=== PATIENT | male | born 1985 | race Caucasian/White ===

== ENCOUNTER → 2018-02-04 | Outpatient (CLI) | payer OTHER | END | disposition home or self-care (01) | LOC: RADMRIMAIN 15:26 | PROVIDERS: ATTEND Orthopaedic Surgery Sports Medicine | DX: Z53.9 Procedure and treatment not carried out, unspecified reason (principal) ==

== ENCOUNTER → 2018-04-14 | Outpatient (CLI) | payer BC ==
--- NOTE | 2018-04-15 07:15 | US ---
EXAMINATION TYPE: US kidneys/renal and bladder DATE OF EXAM: 04/14/2018 COMPARISON: NONE CLINICAL HISTORY: R10.11 RUQ PAIN. Rt flank pain x 8 days, Lt flank pain x 2 days, h/o renal stones EXAM MEASUREMENTS: Right Kidney: 13.4 x 5.0 x 5.2 cm Left Kidney: 12.2 x 5.7 x 6.0 cm *large body habitus and overlying bowel gas limits exam Right Kidney: No hydronephrosis or masses seen Left Kidney: No hydronephrosis or masses seen Bladder: wnl Bilateral Jets seen: rt only There is no evidence for hydronephrosis at this point in time. No nephrolithiasis is seen. No ning s are identified. The urinary bladder is anechoic. Bilateral ureteral jets are seen. IMPRESSION: No hydronephrosis or nephrolithiasis. Exam is slightly suboptimal given patient body habitus.
== END ==
LOC: RADUSWWP 16:15
PROVIDERS: ATTEND Family Medicine
DX: R10.11 Right upper quadrant pain (principal)
CPT/HCPCS: 76770

== ENCOUNTER 2019-10-11 10:38 | Observation (INO) | payer BC ==
[2019-10-11] MEDS ORDERED: NITROGLYCERIN OINT 1 INCH/GM PACKET TOPICAL STA (10:51)
[2019-10-11] MEDS ORDERED: ASPIRIN 81 MG PO STA (10:51)
--- NOTE | 2019-10-11 10:53 | ED ---
General Adult HPI - General Chief complaint: Chest Pain Stated complaint: chest pain Time Seen by Provider: 10/11/19 10:47 Source: patient, RN notes reviewed Mode of arrival: ambulatory Limitations: no limitations - History of Present Illness Initial comments: Patient is a pleasant 34-year-old male presenting to the emergency Department with complaints of chest discomfort. Onset of symptoms was a couple of hours ago. Patient had tightness in his chest however feels a little more sharp now. Discomfort does increase with deep breaths. No radiation. Patient feels slight dyspnea. Patient did have an episode of emesis last 2 mornings however he does occasionally do that normally. No diaphoresis. No history of similar problems previously. Patient is hypertensive. Patient also has hypercholesterolemia. - Related Data Allergies Allergy/AdvReac Type Severity Reaction Status Date / Time No Known Allergies Allergy Verified 10/11/19 10:43 Review of Systems ROS Statement: Those systems with pertinent positive or pertinent negative responses have been documented in the HPI. ROS Other: All systems not noted in ROS Statement are negative. Constitutional: Denies: fever Eyes: Denies: eye pain ENT: Denies: ear pain Respiratory: Reports: dyspnea. Denies: cough Cardiovascular: Reports: chest pain Endocrine: Denies: fatigue Gastrointestinal: Denies: abdominal pain Genitourinary: Denies: dysuria Musculoskeletal: Denies: back pain Skin: Denies: rash Neurological: Denies: weakness Past Medical History Past Medical History: Hypertension History of Any Multi-Drug Resistant Organisms: None Reported Past Surgical History: Hernia Repair Past Psychological History: No Psychological Hx Reported Smoking Status: Never smoker Past Alcohol Use History: Occasional Past Drug Use History: None Reported General Exam Limitations: no limitations General appearance: alert, in no apparent distress Head exam: Present: normocephalic Eye exam: Present: normal appearance Neck exam: Present: normal inspection Respiratory exam: Present: normal lung sounds bilaterally. Absent: chest wall tenderness Cardiovascular Exam: Present: regular rate, normal rhythm Expanded Peripheral pulses: 2+: Radial (R), Radial (L), Posterior Tibialis (R), Posterior Tibialis (L), Dorsalis Pedis (R), Dorsalis Pedis (L) GI/Abdominal exam: Present: soft. Absent: tenderness Extremities exam: Present: normal inspection. Absent: pedal edema, calf tenderness Neurological exam: Present: alert Psychiatric exam: Present: normal affect, normal mood Skin exam: Present: normal color Course Vital Signs 10/11/19 10:40 Temperature 98 F Pulse Rate 87 Respiratory 18 Rate Blood Pressure 134/91 O2 Sat by Pulse 99 Oximetry EKG Findings - EKG Comments: EKG Findings:: Sinus rhythm 85. CA 150. QRS 96. QT 358. QTC 426. Normal axis. Incomplete right bundle-branch block. No acute ST change. Medical Decision Making - Medical Decision Making Patient reevaluated and improved however still has some discomfort. Patient updated on results and plan. Dr. Blackmon has been paged for admission covering for Dr. Meier - Lab Data Result diagrams: 10/11/19 11:44 10/11/19 11:20 Lab Results 10/11/19 10/11/19 10/11/19 Range/Units 11:20 11:37 11:44 WBC 9.9 (3.8-10.6) k/uL RBC 5.03 (4.30-5.90) m/uL Hgb 13.9 (13.0-17.5) gm/dL Hct 43.8 (39.0-53.0) % MCV 87.1 (80.0-100.0) fL MCH 27.6 (25.0-35.0) pg MCHC 31.7 (31.0-37.0) g/dL RDW 12.9 (11.5-15.5) % Plt Count 257 (150-450) k/uL Neutrophils % 77 % Lymphocytes % 16 % Monocytes % 4 % Eosinophils % 1 % Basophils % 0 % Neutrophils # 7.7 (1.3-7.7) k/uL Lymphocytes # 1.6 (1.0-4.8) k/uL Monocytes # 0.4 (0-1.0) k/uL Eosinophils # 0.1 (0-0.7) k/uL Basophils # 0.0 (0-0.2) k/uL PT 9.9 (9.0-12.0) sec INR 0.9 (<1.2) APTT 22.6 (22.0-30.0) sec D-Dimer 0.34 (<0.60) mg/L FEU Sodium 139 (137-145) mmol/L Potassium 4.6 (3.5-5.1) mmol/L Chloride 103 (98-107) mmol/L Carbon Dioxide 29 (22-30) mmol/L Anion Gap 7 mmol/L BUN 14 (9-20) mg/dL Creatinine 0.70 (0.66-1.25) mg/dL Est GFR (CKD-EPI)AfAm >90 (>60 ml/min/1.73 sqM) Est GFR (CKD-EPI)NonAf >90 (>60 ml/min/1.73 sqM) Glucose 108 H (74-99) mg/dL Calcium 8.9 (8.4-10.2) mg/dL Magnesium 1.9 (1.6-2.3) mg/dL Total Bilirubin 0.5 (0.2-1.3) mg/dL AST 26 (17-59) U/L ALT 27 (4-49) U/L Alkaline Phosphatase 87 (38-126) U/L Troponin I (0.000-0.034) ng/mL Total Protein 7.9 (6.3-8.2) g/dL Albumin 4.5 (3.5-5.0) g/dL 10/11/19 Range/Units 11:45 WBC (3.8-10.6) k/uL RBC (4.30-5.90) m/uL Hgb (13.0-17.5) gm/dL Hct (39.0-53.0) % MCV (80.0-100.0) fL MCH (25.0-35.0) pg MCHC (31.0-37.0) g/dL RDW (11.5-15.5) % Plt Count (150-450) k/uL Neutrophils % % Lymphocytes % % Monocytes % % Eosinophils % % Basophils % % Neutrophils # (1.3-7.7) k/uL Lymphocytes # (1.0-4.8) k/uL Monocytes # (0-1.0) k/uL Eosinophils # (0-0.7) k/uL Basophils # (0-0.2) k/uL PT (9.0-12.0) sec INR (<1.2) APTT (22.0-30.0) sec D-Dimer (<0.60) mg/L FEU Sodium (137-145) mmol/L Potassium (3.5-5.1) mmol/L Chloride (98-107) mmol/L Carbon Dioxide (22-30) mmol/L Anion Gap mmol/L BUN (9-20) mg/dL Creatinine (0.66-1.25) mg/dL Est GFR (CKD-EPI)AfAm (>60 ml/min/1.73 sqM) Est GFR (CKD-EPI)NonAf (>60 ml/min/1.73 sqM) Glucose (74-99) mg/dL Calcium (8.4-10.2) mg/dL Magnesium (1.6-2.3) mg/dL Total Bilirubin (0.2-1.3) mg/dL AST (17-59) U/L ALT (4-49) U/L Alkaline Phosphatase (38-126) U/L Troponin I <0.012 (0.000-0.034) ng/mL Total Protein (6.3-8.2) g/dL Albumin (3.5-5.0) g/dL - Radiology Data Radiology results: image reviewed (Chest x-ray reviewed by myself reveals no acute process) Disposition Clinical Impression: Chest pain Disposition: ADMITTED IP TO THIS [facility] Is patient prescribed a controlled substance at d/c from ED?: No Referrals: Donte Meier MD [Primary Care Provider] - 1-2 days Decision Time: 14:25
[2019-10-11 11:39] LABS: ALT 27 U/L (4-49); AST 26 U/L (17-59); African American GFR (CKD) >90 (>60 ml/min/1.73 sqM); Albumin 4.5 g/dL (3.5-5.0); Alkaline Phosphatase 87 U/L (38-126); Anion Gap 7 mmol/L; Blood Urea Nitrogen 14 mg/dL (9-20); Calcium 8.9 mg/dL (8.4-10.2); Carbon Dioxide 29 mmol/L (22-30); Chloride 103 mmol/L (98-107); Glucose 108 mg/dL (74-99); Magnesium 1.9 mg/dL (1.6-2.3); Non-African American GFR(CKD) >90 (>60 ml/min/1.73 sqM); Potassium 4.6 mmol/L (3.5-5.1); Sodium 139 mmol/L (137-145); Total Bilirubin 0.5 mg/dL (0.2-1.3); Total Protein 7.9 g/dL (6.3-8.2)
--- NOTE | 2019-10-11 11:39 | XR ---
EXAMINATION TYPE: XR chest 2V DATE OF EXAM: 10/11/2019 COMPARISON: None INDICATION: Chest pain under left breast TECHNIQUE: Frontal and lateral views of the chest are obtained. FINDINGS: The heart size is normal. The pulmonary vasculature is normal. The lungs are clear. IMPRESSION: 1. No acute pulmonary process.
[2019-10-11 12:36] LABS: Basophils % (A) 0 %; Eosinophils # (A) 0.1 k/uL (0-0.7); Eosinophils % (A) 1 %; HCT 43.8 % (39.0-53.0); HGB 13.9 gm/dL (13.0-17.5); Lymphocytes # (A) 1.6 k/uL (1.0-4.8); Lymphocytes % (A) 16 %; MCH 27.6 pg (25.0-35.0); MCHC 31.7 g/dL (31.0-37.0); MCV 87.1 fL (80.0-100.0); Mean Platelet Volume 8.5; Monocytes # (A) 0.4 k/uL (0-1.0); Monocytes % (A) 4 %; Neutrophils # (A) 7.7 k/uL (1.3-7.7); Neutrophils % (A) 77 %; Platelet Count 257 k/uL (150-450); RBC 5.03 m/uL (4.30-5.90); RDW 12.9 % (11.5-15.5); WBC 9.9 k/uL (3.8-10.6)
[2019-10-11 12:58] LABS: D-Dimer 0.34 mg/L FEU (<0.60); INR 0.9 (<1.2); Partial Thromboplastin Time 22.6 sec (22.0-30.0); Prothrombin Time 9.9 sec (9.0-12.0)
[2019-10-11] MEDS ORDERED: NITROGLYCERIN SL TABS 0.4 MG TAB SUBLINGUAL PRN (14:25)
[2019-10-11] MEDS: NITROGLYCERIN OINT 1 INCH/GM PACKET TOPICAL SCH ×2 (19:00→23:46)
--- NOTE | 2019-10-11 20:42 | P.HPIM ---
History of Present Illness H&P Date: 10/11/19 Chief Complaint: Chest pain History of presenting obtained: This is a pleasant 34-year-old patient follows with Dr. chao. Chronic stable medical conditions include intermittent asthma, hypertension, hyperlipidemia. Patient uses occasional albuterol. Patient was at work he works at [employer]. Lifting heavy boxes. He felt a pinching sensation in his left breast area. Wor se with movement and pressure on it and also some present deep breath. Apparently cough fever or chills. No shortness of breath. No swelling of the legs. Patient now is rather active. Denies any cardiac history in the family. Presented to the ER and was admitted to save the same. Pain is somewhat reproducible. Review of systems: GEN.: None EYES: None HEENT: None NECK: None RESPIRATORY: None CARDIOVASCULAR: As above] GASTROINTESTINAL: None GENITOURINARY: None MUSCULOSKELETAL: As above LYMPHATICS: None HEMATOLOGICAL: None PSYCHIATRY: None NEUROLOGICAL: None Past medical history to include: Intermittent asthma, hypertension, hyperlipidemia Social history: Alcohol occasionally. Does not smoke. No recreational drugs. . Works at [employer]. Physical examination: VITAL SIGNS: 98, 79, 20, 120/70, 97% on room air GENERAL: BMI 57.9, sitting up, comfortable. EYES: Pupils equal. Conjunctiva normal. HEENT: External appearance of nose and ears normal, oral cavity grossly normal. NECK: JVD not raised; masses not palpable. HEART: First and second heart sounds are normal; no edema. LUNGS: Respiratory rate normal; clear to auscultation. ABDOMEN: Soft, nontender, liver spleen not palpable, no masses palpable. PSYCH: Alert and oriented x3; mood and affect normal. MUSCULOSKELETAL: Reproducible localized pain on the lateral part of the left breast, including with twisting body NEUROLOGICAL: Cranial nerves grossly intact; no facial asymmetry, power and sensation grossly intact. LYMPHATICS: No lymph nodes palpable in the axilla and neck INVESTIGATIONS, reviewed in the clinical context: White count 9.9 hemoglobin 13.9 platelets 257 potassium 4.6 creatinine 0.70 Troponin I 2 negative EKG tracing personally reviewed by me-no sinus rhythm Chest x-ray film personally reviewed by me-lung childress clear Assessment: -Left anterior chest wall pain possibly musculoskeletal reproducible patient does move heavy boxes lifts things, reproducible with noncardiac sounding presentation. Patient's concerned about cardiac and this will be ruled out -Morbid obesity BMI 57.9 -Intubated asthma -Essential hypertension -Hyperlipidemia Plan: Serial cardiac enzymes and in place. Cardiology is consulted. Home medications resumed. Lovenox for DVT prophylaxis. Care was discussed with the patient. The patient see the dietitian for weight loss measures. Past Medical History Past Medical History: Asthma, Hyperlipidemia, Hypertension History of Any Multi-Drug Resistant Organisms: None Reported Past Surgical History: Hernia Repair Past Psychological History: No Psychological Hx Reported Smoking Status: Never smoker Past Alcohol Use History: Occasional Past Drug Use History: None Reported - Past Family History Mother History Unknown: Yes Family Medical History: Cancer Father Family Medical History: Diabetes Mellitus Medications and Allergies Home Medications Medication Instructions Recorded Confirmed Type Atorvastatin [Lipitor] 10 mg PO HS 10/11/19 10/11/19 History Lisinopril [Zestril] 10 mg PO HS 10/11/19 10/11/19 History Multivitamins, Thera [Multivitamin 1 tab PO HS 10/11/19 10/11/19 History (formulary)] [place]-3 Fatty Acids/Fish Oil [Fish 1 cap PO HS 10/11/19 10/11/19 History Oil 1,000 mg Softgel] Allergies Allergy/AdvReac Type Severity Reaction Status Date / Time No Known Allergies Allergy Verified 10/11/19 15:18 Physical Exam Vitals: Vital Signs Temp Pulse Resp BP BP Pulse Ox 10/11/19 16:30 16 112/57 97 10/11/19 15:36 98 F 79 20 120/70 97 10/11/19 15:34 79 20 120/70 97 10/11/19 10:40 98 F 87 18 134/91 99 Intake and Output 10/11/19 10/11/19 10/11/19 06:59 14:59 22:59 Intake Total 240 Balance 240 Intake: Oral 240 Other: # Voids 1 # Bowel Movements 0 Weight 188.241 kg 193.8 kg Results CBC & Chem 7: 10/11/19 11:44 10/11/19 11:20 Labs: Abnormal Lab Results - Last 24 Hours (Table) 10/11/19 Range/Units 11:20 Glucose 108 H (74-99) mg/dL Thrombosis Risk Factor Assmnt - Choose All That Apply Any of the Below Risk Factors Present?: Yes Each Factor Represents 1 point: Obesity (BMI >25) Other Risk Factors: Yes (htn) Thrombosis Risk Factor Assessment Total Risk Factor Score: 1 Thrombosis Risk Factor Assessment Level: Low Risk
[2019-10-11] MEDS ORDERED: LISINOPRIL 10 MG TAB PO SCH (21:00)
[2019-10-11] MEDS ORDERED: ENOXAPARIN 40 MG/0.4 ML SYRINGE SQ SCH (21:00)
[2019-10-11] MEDS ORDERED: MULTIVITAMINS, THERA 1 EACH TAB PO SCH (21:00)
[2019-10-11] MEDS ORDERED: ATORVASTATIN 10 MG TAB PO SCH (21:00)
[2019-10-11 23:48] VITALS: RESP 16
[2019-10-12] MEDS: NITROGLYCERIN OINT 1 INCH/GM PACKET TOPICAL SCH ×2 (05:50→12:18)
[2019-10-12 07:06] LABS: Cholesterol 166 mg/dL (<200); HDL Cholesterol 35 mg/dL (40-60); LDL Cholesterol,Calculated 74 mg/dL (0-99); Triglycerides 284 mg/dL (<150)
[2019-10-12] MEDS ORDERED: ASPIRIN 325 MG TAB PO SCH (09:00)
[2019-10-12 10:42] VITALS: BP 132/81; TEMP 97.5
--- NOTE | 2019-10-12 11:20 | P.CRDCN ---
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 He has a known history of hypertension, hyperlipidemia, obesity, he is a nondiabetic, and he does not smoke. He states that he's been under a significant amount of stress recently at his workplace. He presented to the hospital with symptoms of tightness in the left axilla and upper chest region, the symptoms only occur when the patient takes a deep breath. He states when he is breathing normally he has no symptoms at all. He denies any associated shortness of breath, no nausea, no diaphoresis. His EKG on presentation here showed a normal sinus rhythm with incomplete right bundle branch block pattern. Troponins have been negative 3. White blood cell count 9.9, hemoglobin 13.9, platelet count 257. D-dimer 0.34. Sodium 139, potassium 4.6, BUN 14, creatinine 0.7. Troponins have been negative 3. Cholesterol 166, triglycerides 284, LDL 74 and HDL 35. At the time of my examination this morning, the patient is currently chest pain-free. Past Medical History Past Medical History: Asthma, Hyperlipidemia, Hypertension History of Any Multi-Drug Resistant Organisms: None Reported Past Surgical History: Hernia Repair Past Psychological History: No Psychological Hx Reported Smoking Status: Never smoker Past Alcohol Use History: Occasional Past Drug Use History: None Reported - Past Family History Mother History Unknown: Yes Family Medical History: Cancer Father Family Medical History: Diabetes Mellitus Medications and Allergies Home Medications Medication Instructions Recorded Confirmed Type Atorvastatin [Lipitor] 10 mg PO HS 10/11/19 10/11/19 History Lisinopril [Zestril] 10 mg PO HS 10/11/19 10/11/19 History Multivitamins, Thera [Multivitamin 1 tab PO HS 10/11/19 10/11/19 History (formulary)] [place]-3 Fatty Acids/Fish Oil [Fish 1 cap PO HS 10/11/19 10/11/19 History Oil 1,000 mg Softgel] Allergies Allergy/AdvReac Type Severity Reaction Status Date / Time No Known Allergies Allergy Verified 10/11/19 15:18 Physical Exam Vitals: Vital Signs Temp Pulse Pulse Resp BP BP Pulse Ox 10/12/19 08:00 97.5 F L 73 132/81 96 10/12/19 05:58 97.9 F 86 16 125/67 97 10/11/19 23:46 84 16 113/50 97 10/11/19 21:04 97.8 F 93 18 140/88 96 10/11/19 16:30 16 112/57 97 10/11/19 15:36 98 F 79 20 120/70 97 10/11/19 15:34 79 20 120/70 97 Intake and Output 10/11/19 10/12/19 10/12/19 22:59 06:59 14:59 Intake Total 240 Output Total 180 Balance 60 Intake: Oral 240 Output: Urine 180 Other: # Voids 1 1 # Bowel Movements 0 Weight 193.8 kg 193.8 kg 193.8 kg PHYSICAL EXAMINATION: GENERAL: 34-year-old gentleman in no acute distress at the examination HEENT: Head is atraumatic, normocephalic. Pupils equal, round. Sclera anicteric. Conjunctiva are clear. Mucous membranes of the mouth are moist. Neck is supple. There is no elevated jugular venous pressure. No carotid bruit is heard. HEART EXAMINATION: Heart S1, S2 normal. No murmur or gallop heard. CHEST EXAMINATION: Lungs are clear to auscultation and precussion. No chest wall tenderness is noted on palpation or with deep breathing. ABDOMEN: Soft, obese, nontender. Bowel sounds are heard. No organomegaly noted. EXTREMITIES: 2+ peripheral pulses with no evidence of peripheral edema and no calf tenderness noted. NEUROLOGIC patient is awake, alert and oriented 3. . Results 10/11/19 11:44 10/11/19 11:20 Cardiac Enzymes 10/11/19 10/11/19 10/11/19 Range/Units 11:20 11:45 17:53 AST 26 (17-59) U/L Troponin I <0.012 <0.012 (0.000-0.034) ng/mL 10/11/19 Range/Units 22:37 AST (17-59) U/L Troponin I <0.012 (0.000-0.034) ng/mL Coagulation 10/11/19 Range/Units 11:37 PT 9.9 (9.0-12.0) sec APTT 22.6 (22.0-30.0) sec Lipids 10/12/19 Range/Units 06:12 Triglycerides 284 H (<150) mg/dL Cholesterol 166 (<200) mg/dL HDL Cholesterol 35 L (40-60) mg/dL CBC 10/11/19 Range/Units 11:44 WBC 9.9 (3.8-10.6) k/uL RBC 5.03 (4.30-5.90) m/uL Hgb 13.9 (13.0-17.5) gm/dL Hct 43.8 (39.0-53.0) % Plt Count 257 (150-450) k/uL Comprehensive Metabolic Panel 10/11/19 Range/Units 11:20 Sodium 139 (137-145) mmol/L Potassium 4.6 (3.5-5.1) mmol/L Chloride 103 (98-107) mmol/L Carbon Dioxide 29 (22-30) mmol/L BUN 14 (9-20) mg/dL Creatinine 0.70 (0.66-1.25) mg/dL Glucose 108 H (74-99) mg/dL Calcium 8.9 (8.4-10.2) mg/dL AST 26 (17-59) U/L ALT 27 (4-49) U/L Alkaline Phosphatase 87 (38-126) U/L Total Protein 7.9 (6.3-8.2) g/dL Albumin 4.5 (3.5-5.0) g/dL Current Medications Generic Name Dose Route Start Last Admin Trade Name Freq PRN Reason Stop Dose Admin Aspirin 325 mg 10/12/19 09:00 10/12/19 09:12 Aspirin PO 325 mg DAILY GAIL Administration Atorvastatin Calcium 10 mg 10/11/19 21:00 10/11/19 21:01 Lipitor PO 10 mg HS GAIL Administration Enoxaparin Sodium 40 mg 10/11/19 21:00 10/11/19 21:01 Lovenox SQ 40 mg HS GAIL Administration Lisinopril 10 mg 10/11/19 21:00 10/11/19 21:01 Zestril PO 10 mg HS GAIL Administration Multivitamins 1 each 10/11/19 21:00 10/11/19 21:01 Theragran PO 1 each HS GAIL Administration Nitroglycerin 0.4 mg 10/11/19 14:25 Nitrostat SUBLINGUAL Q5M PRN Chest Pain Nitroglycerin 1 inch 10/11/19 18:00 10/12/19 05:50 Nitro-Bid Oint TOPICAL Not Given Q6HR GAIL Sodium Chloride 10 ml 10/11/19 21:00 10/12/19 09:13 Saline Flush IV 10 ml BID GAIL Administration Intake and Output 10/11/19 10/12/19 10/12/19 22:59 06:59 14:59 Intake Total 240 Output Total 180 Balance 60 Intake: Oral 240 Output: Urine 180 Other: # Voids 1 1 # Bowel Movements 0 Weight 193.8 kg 193.8 kg 193.8 kg Patient Weight 10/13/19 06:59 Weight 193.8 kg 10/11/19 11:44 10/11/19 11:20 EKG Interpretations (text) EKG shows a normal sinus rhythm with an incomplete right bundle branch block pattern Assessment and Plan Plan: Assessment and plan #1 chest pain, atypical for acute coronary syndrome, pleuritic in nature. Troponins negative 3. EKG shows a normal sinus rhythm with incomplete right bundle branch block pattern. #2 hypertension #3 hyperlipidemia #4 obesity Plan We will obtain an echocardiogram with Doppler study. We will also request the patient to undergo a stress echocardiographic study today. Further recommendations will be based on the findings of these tests and the patient's overall clinical course. DNP note has been reviewed, I agree with a documented findings and plan of care. Patient was seen and examined.
--- NOTE | 2019-10-12 11:31 | ECHOF ---
Referral Reason:chest pain MEASUREMENTS -------- HEIGHT: 180.3 cm WEIGHT: 193.7 kg BP: RVIDd: 3.6 cm (< 3.3) IVSd: 1.6 cm (0.6 - 1.1) LVIDd: 4.3 cm (3.9 - 5.3) LVPWd: 1.5 cm (0.6 - 1.1) IVSs: 2.1 cm LVIDs: 2.6 cm LVPWs: 2.1 cm Ao Diam: 3.1 cm (2.0 - 3.7) AV Cusp: 2.6 cm (1.5 - 2.6) LA Diam: 3.6 cm (2.7 - 3.8) MV EXCURSION: 19.913 mm (> 18.000) MV EF SLOPE: 152 mm/s (70 - 150) EPSS: 1.0 cm MV E Joseph: 0.60 m/s MV DecT: 208 ms MV A Joseph: 0.38 m/s MV E/A Ratio: 1.57 RAP: 5.00 mmHg RVSP: 11.16 mmHg FINDINGS -------- Sinus rhythm. This was a technically difficult study with suboptimal views. The left ventricular size is normal. There is moderate concentric left ventricular hypertrophy. O verall left ventricular systolic function is low-normal with, an EF between 50 - 55 %. The right ventricle is mildly enlarged. The left atrial size is normal. The right atrial size is normal. Lumason used The aortic valve is trileaflet and appears structurally normal. The mitral valve is normal. There is trace mitral regurgitation. The tricuspid valve appears structurally normal. Trace tricuspid regurgitation present. Right ghanshyam tricular systolic pressure is normal at < 35 mmHg. There is no pulmonic regurgitation present. The aortic root size is normal. IVC Not well visulized. There is no pericardial effusion. CONCLUSIONS -------- 1. Sinus rhythm. 2. This was a technically difficult study with suboptimal views. 3. The left ventricular size is normal. 4. There is moderate concentric left ventricular hypertrophy. 5. Overall left ventricular systolic function is low-normal with, an EF between 50 - 55 %. 6. The right ventricle is mildly enlarged. 7. The left atrial size is normal. 8. The right atrial size is normal. 9. Lumason used 10. The aortic valve is trileaflet and appears structurally normal. 11. The mitral valve is normal. 12. There is trace mitral regurgitation. 13. The tricuspid valve appears structurally normal. 14. Trace tricuspid regurgitation present. 15. Right ventricular systolic pressure is normal at < 35 mmHg. 16. There is no pulmonic regurgitation present. 17. The aortic root size is normal. 18. IVC Not well visulized. 19. There is no pericardial effusion. [employer] SUPERVISOR: Aliyah Ramsey RDCS
--- NOTE | 2019-10-12 11:55 | ECHOS ---
STRESS ECHOCARDIOGRAM INDICATIONS: Chest pain. MEDICATIONS: Multivitamin, Atorvastatin, lisinopril, fish oil BASELINE HEART RATE: 97 BASELINE BLOOD PRESSURE: 144/89 MAXIMUM HEART RATE: 170 MAXIMUM BLOOD PRESSURE: 211/48 85% MPHR: 157 100% MPHR: 185 METS: 7.1 MAXIMUM STAGE REACHED: 2 TOTAL EXERCISE TIME: 6:00 CLINICAL INFORMATION: Baseline EKG show sinus rhythm, normal axis, normal intervals. Patient exercised on Tito protocol for a total of 6 minutes achieved 7 METS, 92% of predicted maximum heart rate without chest pain or diagnostic ST segment depression. . Baseline echo shows normal left ventricular sign, wall motion and systolic function. Postexercise there is normal hyperdynamics and myocardium noted. Contrast agent was used to enhance the endocardiac definition. CONCLUSION: 1. Average exercise tolerance. 2. Negative stress test by EKG criteria. 3. Negative stress echo. MMFRANCIL / RAFYN: [id number] /
[2019-10-12 12:18] VITALS: PULSE 80
== END 2019-10-12 15:12 | disposition home or self-care (01) ==
LOC: EC 10:38 → 3SCARD 14:25
PROVIDERS: ADMIT Hospitalist; ATTEND Hospitalist
DX: R07.89 Other chest pain (principal); I10 Essential (primary) hypertension; E78.00 Pure hypercholesterolemia, unspecified; J45.20 Mild intermittent asthma, uncomplicated; E78.5 Hyperlipidemia, unspecified; I45.10 Unspecified right bundle-branch block; R11.10 Vomiting, unspecified; E66.01 Morbid (severe) obesity due to excess calories; Z68.43 Body mass index [BMI] 50.0-59.9, adult; Z79.899 Other long term (current) drug therapy; Z80.9 Family history of malignant neoplasm, unspecified; Z83.3 Family history of diabetes mellitus
CPT/HCPCS: 96372; 93005 ×2; 99285; 36415; 93351; 85379; 80061; 80053; 83735; 84484; 85025; 85610; 85730; 71046; G0378 ×2; J1650; Q9950; 93306